=== PATIENT | male | born 1980 | race Two or more races ===

== ENCOUNTER 2019-06-15 21:11 | Emergency (ER) | payer BC ==
[~2019-06-15] VITALS: Ht 170.2 cm; Wt 95.8 kg
[2019-06-15 21:15] VITALS: BP 109/66
== END 2019-06-15 22:10 | disposition home or self-care (01) ==
LOC: ED 21:45
DX: L02.612 Cutaneous abscess of left foot (principal)
CPT/HCPCS: 99283

== ENCOUNTER 2020-06-26 23:07 | Emergency (ER) | payer BC ==
[~2020-06-26] VITALS: Ht 167.6 cm; Wt 101.0 kg
[2020-06-26] MEDS ORDERED: ONDANSETRON 2MG/ML, 2ML IVPush ONE (23:30)
[2020-06-26] MEDS ORDERED: ASPIRIN 81 MG TABLET CHEW PO ONE (23:30)
[2020-06-26] MEDS ORDERED: NITROGLYCERIN OINT 2%, 1GM TP ONE ×2 (23:30→23:35)
[2020-06-26] MEDS ORDERED: SODIUM CHLORIDE FLUSH 10ML SYR IVF ONE (23:30)
[2020-06-26] MEDS ORDERED: MORPHINE SULFATE 4 MG/ML, 1ML IVPush PRN (23:30)
[2020-06-26] MEDS ORDERED: ONDANSETRON 2MG/ML, 2ML ONE (23:35)
[2020-06-26] MEDS ORDERED: ASPIRIN 81 MG TABLET CHEW ONE (23:36)
[2020-06-26] MEDS ORDERED: KETOROLAC 30 MG/1 ML ONE (23:54)
[2020-06-27] LABS: ALANINE AMINOTRANSFERASE 40 U/L (12-78); ALBUMIN 3.7 g/dL (3.4-5.0); ANION GAP 7 mmol/L (5-15); CALCIUM 8.5 mg/dL (8.5-10.1); CHLORIDE 111 mmol/L (98-107); CREATININE 1.16 mg/dL (0.7-1.3)
[2020-06-27] MEDS ORDERED: KETOROLAC 30 MG/1 ML IVPush ONE
--- NOTE | 2020-06-27 00:01 | NUR ---
TAYLOR RESTING IN BED IN NAD. CALL BANGURA IN REACH. IV PLACED. DR. LORENZO TO BEDSIDE AND INSTRUCTED RN TO HOLD OFF ON DMINISTERING NITRO PASTE AFTER HIS ASSESSMENT. PATIENT DECLINES ANY PAIN MEDICATIONS AT THIS TIME BUT ACCEPTS TORADOL. WILL CONTINUE TO MONITOR
[2020-06-27 00:05] LABS: ALKALINE PHOSPHATASE 62 U/L (45-117); BILIRUBIN,TOTAL 1.1 mg/dL (0.2-1.0); TOTAL PROTEIN 7.6 g/dL (6.4-8.2); TROPONIN I < 0.015 ng/mL (0.000-0.045)
[2020-06-27 00:19] LABS: BASOPHILS % (AUTO) 1 % (0-1); EOSINOPHILS % (AUTO) 2 % (1-7); LYMPHOCYTES % (AUTO) 12 % (22-44); MD NO; MEAN PLATELET VOLUME 11.3 fL (7.4-10.4); MONOCYTES % (AUTO) 7 % (2-9); NEUTROPHILS % (AUTO) 79 % (42-75); PLATELET COUNT 195 x10^3/uL (130-400); RED BLOOD COUNT 4.96 x10^6/uL (4.38-5.82); RED CELL DISTRIBUTION WIDTH 13.7 % (9.4-14.8)
--- NOTE | 2020-06-27 00:55 | NUR ---
DISCHARGE INSTRUCTIONS REVIEWED WITH PATIENT. NO FURTHER QUESTIONS AT THIS TIME. PRESCRIPTION HANDED DIRECTLY TO PATIENT. WORK NOTE WELL.IV REMOVED PER DC PROTOCOL. ALL PERSONAL BELONGINGS WITH PATIENT ON DISCHARGE. STEADY GAIT TO LOBBY. EDUCATION ON RESTRICTIONS WITH NEW PRESCRIPTION OF FLEXERIL REVIEWED WITH PATIENT AND HE VOICED UNDERSTANDING.
[2020-06-27 00:58] VITALS: BP 121/62
== END 2020-06-27 01:01 | disposition home or self-care (01) ==
LOC: ED 06-27 00:20
DX: S29.012A Strain of muscle and tendon of back wall of thorax, initial encounter (principal); M62.830 Muscle spasm of back; R07.89 Other chest pain; M54.2 Cervicalgia; R11.0 Nausea; R53.83 Other fatigue; X58.XXXA Exposure to other specified factors, initial encounter; Y93.89 Activity, other specified; Y92.89 Other specified places as the place of occurrence of the external cause; Y99.8 Other external cause status
CPT/HCPCS: 36415; 71045; 80053; 83880; 84484; 85025; 93005; 96374; 96375; 99285; J1885; J2405

== ENCOUNTER 2020-07-01 13:20 | Emergency (ER) | payer BC ==
[~2020-07-01] VITALS: Ht 167.6 cm; Wt 99.6 kg
--- NOTE | 2020-07-01 14:13 | NUR ---
TO ROOM AT THIS TIME
--- NOTE | 2020-07-01 14:18 | NUR ---
ASSUMED CARE OF PATIENT. PATIENT REPORTS HE HAS HAD BODY ACHES AND FEVERS X2 DAYS AND HIS WORK WON'T LET HIM COME BACK UNTIL HE HAS BEEN TESTED FOR COVID. VS STABLE. NO ACUTE DISTRESS NOTED. CALL LIGHT IN PLACE. WILL CONTINUE TO MONITOR.
--- NOTE | 2020-07-01 14:23 | NUR ---
DR OWEN IN ROOM
[2020-07-01 14:59] VITALS: BP 120/80
== END 2020-07-01 15:02 | disposition home or self-care (01) ==
LOC: ED 14:08
DX: U07.1 COVID-19 (principal); B34.9 Viral infection, unspecified
CPT/HCPCS: 99283; U0003

== ENCOUNTER 2020-07-11 20:23 | Observation (INO) | payer BC, OTHER ==
[~2020-07-11] VITALS: Ht 167.6 cm; Wt 96.0 kg
[2020-07-11] MEDS ORDERED: LIDOCAINE-MPF 2% ,5ML ONE (20:34)
--- NOTE | 2020-07-11 20:47 | NUR ---
pt here for finger amputation to left ring and pinky finger. Fingers were cut while using a electrotype molder saw. Bleeding controlled. PA at bedside doing a digital block. piv placed and labs drawn. Pt says pain is now improved. Pt placed on monitors. friend at bedside. VSS. waiting for further orders.
[2020-07-11 20:58] LABS: BASOPHILS % (AUTO) 1 % (0-1); EOSINOPHILS % (AUTO) 2 % (1-7); LYMPHOCYTES % (AUTO) 32 % (22-44); MEAN CORPUSCULAR HEMOGLOBIN 31.1 pg (27.5-34.5); MEAN CORPUSCULAR HGB CONC 35.1 g/dL (33.2-36.2); MEAN PLATELET VOLUME 10.1 fL (7.4-10.4); MONOCYTES % (AUTO) 8 % (2-9); NEUTROPHILS % (AUTO) 57 % (42-75); PLATELET COUNT 262 x10^3/uL (130-400); RED CELL DISTRIBUTION WIDTH 13.5 % (9.4-14.8)
[2020-07-11 20:59] LABS: MD NO
[2020-07-11] MEDS ORDERED: CEFAZOLIN PMX 2GM/50ML 50 ML IVPB ONE (21:00)
[2020-07-11] MEDS ORDERED: SODIUM CHLORIDE FLUSH 10ML SYR IVF ONE (21:00)
[2020-07-11] MEDS ORDERED: CEFAZOLIN 2,000 MG in SODIUM CHLORIDE 0.9% 50 ML IV ONE (21:00)
[2020-07-11] MEDS ORDERED: LIDOCAINE-MPF 2% ,5ML INFIL ONE (21:00)
[2020-07-11] MEDS ORDERED: LIDOCAINE 2%, 20ML INFIL ONE (21:00)
[2020-07-11] MEDS ORDERED: DIPH,PERTUSS(ACELL),TET VAC/PF 0.5 ML IM-VACC ONE ×2 (21:00→21:04)
[2020-07-11 21:08] LABS: ALANINE AMINOTRANSFERASE 74 U/L (12-78); ALBUMIN 4.1 g/dL (3.4-5.0); ANION GAP 10 mmol/L (5-15); CALCIUM 8.9 mg/dL (8.5-10.1); CHLORIDE 112 mmol/L (98-107); CREATININE 1.35 mg/dL (0.7-1.3)
[2020-07-11 21:10] LABS: ALKALINE PHOSPHATASE 67 U/L (45-117); BILIRUBIN,TOTAL 1.2 mg/dL (0.2-1.0); TOTAL PROTEIN 8.4 g/dL (6.4-8.2)
[2020-07-11] MEDS ORDERED: BUPIVACAINE 0.25% ONE (21:21)
--- NOTE | 2020-07-11 21:26 | NUR ---
abx running. pt given tdap. Tech at bedside placing saline gauze over wound. Ortho MD to see pt.
[2020-07-11] MEDS ORDERED: BUPIVACAINE 0.25% INFIL ONE (21:30)
--- NOTE | 2020-07-11 21:46 | NUR ---
covid swab collected and walked to lab. pt resting with no needs at this willie. call light in reach.
[2020-07-11 22:46] VITALS: BP 129/81
[2020-07-11] MEDS: OXYcodone IR 5MG TABLET PO PRN (23:57)
[2020-07-12 01:37] VITALS: BP 103/65
[2020-07-12] MEDS: OXYcodone IR 5MG TABLET PO PRN ×2 (03:45→09:06)
[2020-07-12] MEDS ORDERED: BUPIVACAINE/PF 0.5% ONE (04:14)
[2020-07-12] MEDS ORDERED: BUPIVACAINE/PF 0.5% INFIL ONE (04:22)
[2020-07-12] MEDS ORDERED: OXYC5TAB98 PO (05:50)
[2020-07-12] MEDS ORDERED: FENTANYL PF 250 MCG/5ML ONE (05:50)
[2020-07-12] MEDS ORDERED: FENTANYL PF 100 MCG/2ML ONE (05:55)
[2020-07-12] MEDS ORDERED: OXYcodone 5 MG/5 ML ORAL.SOL UDC ONE (05:56)
[2020-07-12] MEDS ORDERED: ACETAMINOPHEN 650 MG/20.3 ML UDC ONE (06:11)
[2020-07-12] MEDS ORDERED: ONDANSETRON 2MG/ML, 2ML ONE (06:32)
[2020-07-12] MEDS ORDERED: PROPOFOL 10 MG/ML, 20ML ONE (06:32)
[2020-07-12] MEDS ORDERED: DEXAMETHASONE 4 MG/ML, 1ML ONE (06:32)
[2020-07-12] MEDS ORDERED: CEFAZOLIN 1,000 MG ONE (06:32)
[2020-07-12] MEDS ORDERED: ACETAMINOPHEN 325 MG TABLET PO PRN (07:00)
[2020-07-12] MEDS ORDERED: LABETALOL 5MG/ML, 20ML IV PRN (07:00)
[2020-07-12] MEDS ORDERED: PROMETHAZINE 25 MG/ML, 1ML IVPush PRN (07:00)
[2020-07-12] MEDS ORDERED: FENTANYL PF 100 MCG/2ML IV PRN (07:00)
[2020-07-12] MEDS ORDERED: HYDROmorphone 1 MG/ML, 1ML INJ IVPush PRN (07:00)
[2020-07-12] MEDS ORDERED: hydrALAzine 20 MG/ML, 1ML IV PRN (07:00)
[2020-07-12] MEDS ORDERED: MEPERIDINE/PF 25MG/0.5ML IVPush PRN (07:00)
[2020-07-12] MEDS ORDERED: OXYcodone 5 MG/5 ML ORAL.SOL UDC PO PRN (07:00)
== END 2020-07-12 11:15 | disposition home or self-care (01) ==
LOC: ED 21:06 → EDIP 21:31 → INTOOBSV 21:31 → 4NE 22:38
PROVIDERS: ADMIT Orthopaedic Surgery; ATTEND Orthopaedic Surgery
DX: S68.115A Complete traumatic metacarpophalangeal amputation of left ring finger, initial encounter (principal); S68.117A Complete traumatic metacarpophalangeal amputation of left little finger, initial encounter; U07.1 COVID-19; F12.90 Cannabis use, unspecified, uncomplicated; W31.89XA Contact with other specified machinery, initial encounter; Y93.89 Activity, other specified; Y92.89 Other specified places as the place of occurrence of the external cause; Z78.9 Other specified health status; Z23 Encounter for immunization
CPT/HCPCS: 26951; 36415; 73130; 80053; 85025; 87635; 90471; 90715; 96365; 99284; G0378; J0690; J1100; J2405; J2704; J3010; S0020

== ENCOUNTER 2020-12-05 17:36 | Emergency (ER) | payer BC, OTHER ==
[~2020-12-05] VITALS: Ht 167.6 cm; Wt 98.6 kg
[~2020-12-05 17:36] MED LIST: OXYC5TAB98 PO
[2020-12-05 18:04] VITALS: BP 122/84
[2020-12-05] MEDS ORDERED: LIDOCAINE-MPF 1%, 5ML ONE (18:17)
[2020-12-05] MEDS ORDERED: LIDOCAINE-MPF 1%, 5ML INFIL ONE (18:30)
[2020-12-05] MEDS ORDERED: BACITRACIN ZINC OINT 500U/GM, 0.9 GM ONE (19:04)
== END 2020-12-05 19:27 | disposition home or self-care (01) ==
LOC: ED 19:00
DX: S51.812A Laceration without foreign body of left forearm, initial encounter (principal); X58.XXXA Exposure to other specified factors, initial encounter; Y93.89 Activity, other specified; Y92.009 Unspecified place in unspecified non-institutional (private) residence as the place of occurrence of the external cause; Y99.8 Other external cause status
CPT/HCPCS: 12001; 99282